=== PATIENT | female | born 1980 | race Caucasian/White ===

== ENCOUNTER 2017-12-19 20:38 | Emergency (ER) | payer MEDICAID, OTHER ==
[2017-12-19] MEDS ORDERED: Ketorolac Tromethamine 60 MG/2 ML VIAL ONE (21:08)
== END 2017-12-19 21:35 | disposition home or self-care (01) ==
LOC: NAV ERS 20:38
DX: M77.9 Enthesopathy, unspecified (principal); F17.210 Nicotine dependence, cigarettes, uncomplicated
CPT/HCPCS: 96372; J1885